=== PATIENT | male | born 1940 | race Caucasian/White ===

== ENCOUNTER → 2017-11-09 | Outpatient (CLI) | payer MEDICARE ==
--- NOTE | 2017-11-09 18:22 | REP ---
CT of the abdomen pelvis without IV and oral contrast for evaluation of abdominal aortic aneurysm: There are no comparison studies. There is an infrarenal abdominal aortic aneurysm measuring 5.6 cm diameter and spanning a craniocaudad length of 8.5 cm. There is no periaortic hematoma. There is circumferential calcified atheroma in the abdominal aorta including the aneurysm. The visualized lung swanson are unremarkable. The unenhanced hepatic parenchyma, gallbladder, pancreas and spleen are unremarkable. The adrenals, kidneys, bowel and mesentery are unremarkable. Pelvis: There is descending colon and sigmoid colon diverticulosis without diverticulitis. The bladder is unremarkable. A small central is incidentally noted. There is no ascites or adenopathy. Impression: The the patient has an abdominal aortic aneurysm measuring 5.6 cm in diameter and spanning a craniocaudad length of 8.5 cm. There is no periaortic hematoma. There is diverticulosis without diverticulitis. Signed by Rashawn Castro MD 11/09/2017 06:13 P
== END ==
LOC: M RAD 16:53
PROVIDERS: ATTEND Surgery Vascular Surgery
DX: I71.4 Abdominal aortic aneurysm, without rupture (principal)

== ENCOUNTER → 2017-11-18 | Outpatient (CLI) | payer MEDICARE ==
[~2017-11-18] MED LIST: ASPI1TAB PO; ATOR1TAB19 PO; BENA20TA8 PO; SERT50TA PO
--- NOTE | 2017-11-18 15:01 | REP ---
CAROTID ULTRASOUND: Real-time ultrasound evaluation and duplex Doppler interrogation of the extracranial carotid vasculature is performed. There is mild plaquing and narrowing in both carotid bulbs extending into the internal and external carotid arteries. Luminal narrowing is less than 50%. There is no evidence of hemodynamically significant stenosis of either internal carotid artery. Normal flow velocities are seen. The vertebral arteries demonstrate normal direction of flow. RIGHT LEFT Peak systolic velocity ICA 59 cm/s 67.1 cm/s End diastolic velocity ICA 18.5 cm/s 21.8 cm/s Peak systolic velocity CCA 67.4 cm/s 101.1 cm/s Peak systolic velocity ECA 88.6 cm/s 19.5 cm/s ICA/CCA ratio 1.5 1.27 IMPRESSION: Bilateral luminal narrowing of the internal carotid arteries less than 50%. No evidence of hemodynamically significant stenosis. There is a soft tissue mass in the left side of the neck incidentally noted with irregular margins, measuring 3.4 x 1.7 x [address] of the soft tissues of the neck with IV contrast to further evaluate. Signed by Rashawn Little MD 11/18/2017 02:52 P
== END ==
LOC: M RAD 14:00
PROVIDERS: ATTEND Surgery Vascular Surgery
DX: I71.4 Abdominal aortic aneurysm, without rupture (principal); I65.23 Occlusion and stenosis of bilateral carotid arteries; F17.210 Nicotine dependence, cigarettes, uncomplicated

== ENCOUNTER 2017-12-02 05:46 | Inpatient (IN) | payer MEDICARE ==
[2017-12-02 06:22] LABS: HEMATOCRIT 38.9 % (42.0-52.0); MEAN CORPUSCULAR HEMOGLOBIN 31.8 pg (27.0-33.0); MEAN CORPUSCULAR HGB CONC 33.4 g/dl (32.0-36.5); MEAN CORPUSCULAR VOLUME 95.1 fl (80.0-96.0); PLATELET COUNT, AUTOMATED 280 10^3/uL (150-450); RED BLOOD COUNT 4.09 10^6/uL (4.30-6.10); RED CELL DISTRIBUTION WIDTH 14.3 % (11.5-14.5); WHITE BLOOD COUNT 9.3 10^3/uL (4.0-10.0)
[2017-12-02] MEDS: LR 1,000 ML IV ×2 (07:00→11:45)
[2017-12-02] MEDS ORDERED: PROPOFOL 200 MG/20 ML VIAL As Ordered (07:15)
[2017-12-02] MEDS ORDERED: MIDAZOLAM INJ 2 MG/2 ML VIAL (J2250) As Ordered (07:15)
[2017-12-02] MEDS ORDERED: fentaNYL 100 MCG/2 ML INJECTION (J3010) As Ordered ×3 (07:15→10:53)
[2017-12-02] MEDS ORDERED: LIDOCAINE 2% INJ 100 MG/5 ML SDV (FOR ANES.) As Ordered (07:15)
[2017-12-02] MEDS ORDERED: NEOSTIGMINE 10 MG/10 ML VIAL (J2710) As Ordered (07:47)
[2017-12-02] MEDS ORDERED: GLYCOPYRROLATE INJ 0.2 MG/ML 2 ML VIAL As Ordered (07:47)
[2017-12-02] MEDS ORDERED: dexameTHASONE 4 MG/ML 1ML VIAL (J1100) As Ordered (07:47)
[2017-12-02] MEDS ORDERED: ROCURONIUM BROMIDE 50 MG/5 ML VIAL As Ordered ×2 (07:47→08:57)
[2017-12-02] MEDS ORDERED: ONDANSETRON 4MG/2ML VIAL (J2405) As Ordered (07:47)
[2017-12-02] MEDS: HEPARIN SOD (PORCINE) 5000 UNITS/ML VIAL As Ordered (08:16)
[2017-12-02] MEDS ORDERED: HEPARIN SOD (PORCINE) 5000 UNITS/ML VIAL As Ordered (08:37)
[2017-12-02] MEDS: ISOVUE-300 61% 50ML VIAL (Q9967) As Ordered (08:59)
[2017-12-02] MEDS ORDERED: ePHEDrine SULFATE 25 MG/5 ML(5MG/ML) SYRINGE As Ordered (09:19)
[2017-12-02] MEDS ORDERED: PHENYLephrine HCL 500 MCG/5 ML (100MCG/ML) SYRINGE (J2370) As Ordered (09:20)
[2017-12-02 09:21] LABS: INR 1.03; PROTHROMBIN TIME 13.6 SECONDS (12.4-14.5)
[2017-12-02 09:22] LABS: PARTIAL THROMBOPLASTIN TIME 26.4 SECONDS (26.8-37.9)
[2017-12-02 09:30] LABS: ANION GAP 5 MEQ/L (8-16); BLOOD UREA NITROGEN 20 MG/DL (7-18); CALCIUM LEVEL 8.5 MG/DL (8.8-10.2); CARBON DIOXIDE LEVEL 27 MEQ/L (21-32); CHLORIDE LEVEL 108 MEQ/L (98-107); CREATININE FOR GFR 0.89 MG/DL (0.70-1.30); GLOMERULAR FILTRATION RATE > 60.0 (>42); GLUCOSE, FASTING 111 MG/DL (83-110); POTASSIUM SERUM 4.3 MEQ/L (3.5-5.1); SODIUM LEVEL 140 MEQ/L (136-145)
[2017-12-02] MEDS ORDERED: ONDANSETRON 4MG/2ML VIAL (J2405) IV ×2 (11:45→12:00)
[2017-12-02] MEDS ORDERED: METOCLOPRAMIDE INJ 10MG/2ML VIAL (J2765) IV (11:45)
[2017-12-02] MEDS ORDERED: MOM 30ML SUSPENSION UDC PO (12:00)
[2017-12-02] MEDS ORDERED: BISACODYL 10 MG SUPP PR (12:00)
[2017-12-02] MEDS: PERCOCET 5MG/325MG TAB PO ×2 (12:12→12:38)
[2017-12-02] MEDS: fentaNYL 100 MCG/2 ML INJECTION (J3010) IV (12:13)
[2017-12-02] MEDS: ASPIRIN 81 MG ENTERIC TAB PO (13:51)
[2017-12-02] MEDS: ATORVASTATIN 10 MG TAB PO (13:51)
[2017-12-02] MEDS: SERTRALINE HCL 50 MG TAB PO (13:51)
[2017-12-02] MEDS: DOCUSATE SODIUM 100 MG CAP PO (20:21)
[2017-12-02] MEDS: SENOKOT S TAB PO (20:21)
[2017-12-02] MEDS: HEPARIN SOD (PORCINE) 5000 UNITS/ML VIAL SC (20:21)
[2017-12-02] MEDS: SLF 3 ML SYR IV ×2 (20:22)
[2017-12-02] MEDS: ACETAMINOPHEN TAB 650MG DOSE (2X325MG) PO (20:31)
[2017-12-03] MEDS: SLF 3 ML SYR IV (06:45)
[2017-12-03] MEDS: DOCUSATE SODIUM 100 MG CAP PO (07:31)
[2017-12-03] MEDS: SENOKOT S TAB PO (07:31)
[2017-12-03] MEDS: BENAZEPRIL 20 MG TAB PO (07:31)
[2017-12-03] MEDS: ASPIRIN 81 MG ENTERIC TAB PO (07:31)
[2017-12-03] MEDS: NORCO, ANEXSIA 5/325MG TABLET (HYDROcodone/ACETAMINOPHEN) PO (07:32)
[2017-12-03] MEDS: ATORVASTATIN 10 MG TAB PO (07:32)
[2017-12-03] MEDS: SERTRALINE HCL 50 MG TAB PO (07:32)
[2017-12-03] MEDS: HEPARIN SOD (PORCINE) 5000 UNITS/ML VIAL SC (07:32)
== END 2017-12-03 14:00 | disposition home or self-care (01) | DRG 269 ==
LOC: M OR 05:46 → M PCU 12:08
PROC: 04V03DZ Restriction of Abdominal Aorta with Intraluminal Device, Percutaneous Approach (ICD-10-PCS; principal; 2017-12-02 07:30)
PROC: 04CK0ZZ Extirpation of Matter from Right Femoral Artery, Open Approach (ICD-10-PCS; 2017-12-02 07:30)
DX: I71.4 Abdominal aortic aneurysm, without rupture (principal); I10 Essential (primary) hypertension; J44.9 Chronic obstructive pulmonary disease, unspecified; F32.9 Major depressive disorder, single episode, unspecified; N40.0 Benign prostatic hyperplasia without lower urinary tract symptoms; F17.210 Nicotine dependence, cigarettes, uncomplicated; Z79.82 Long term (current) use of aspirin; Z79.899 Other long term (current) drug therapy

== ENCOUNTER → 2018-01-05 | Outpatient (CLI) | payer MEDICARE | LOC: M RAD 10:02 | DX: I71.4 Abdominal aortic aneurysm, without rupture (principal) | CPT/HCPCS: 76775 ==

== ENCOUNTER 2018-01-26 08:46 | Day surgery (SDC) | payer MEDICARE ==
[~2018-01-26 08:46] MED LIST changes: +ACETAMINOPHEN 325 MG TAB PO; -ASPI1TAB PO; -ATOR1TAB19 PO; -BENA20TA8 PO; +MIDAZOLAM INJ 2 MG/2 ML VIAL (J2250) As Ordered; +PHENYLEPHRINE HCL 10 % OPHTH. SOL 5ML OS; +PROPARACAINE 0.5% OPHTH SOL 15ML OS; -SERT50TA PO; +fentaNYL 100 MCG/2 ML INJECTION (J3010) As Ordered
[2018-01-26] MEDS ORDERED: KETOROLAC 0.5% OPHTH SOLN OS (09:00)
[2018-01-26] MEDS ORDERED: TRIMETHOBENZAMIDE 300 MG CAP PO (09:00)
[2018-01-26] MEDS ORDERED: CYCLOPENTOLATE 2% OPHTH SOLN 2ML BTL As Ordered (09:50)
[2018-01-26] MEDS ORDERED: OFLOXACIN 0.3 % (OCUFLOX) OPTH SOL 5ML As Ordered (09:50)
[2018-01-26] MEDS ORDERED: PHENYLEPHRINE 2.5% OPHTH SOL 2ML As Ordered (09:50)
[2018-01-26] MEDS ORDERED: TROPICAMIDE 1% OPHTH SOLN 2ML As Ordered (09:50)
[2018-01-26] MEDS: TROPICAMIDE 1% OPHTH SOLN 2ML OS (10:00)
[2018-01-26] MEDS: LIDOCAINE 3.5 % 1ML OPHTH TOPICAL GEL OU (10:00)
[2018-01-26] MEDS: OFLOXACIN 0.3 % (OCUFLOX) OPTH SOL 5ML OS (10:00)
[2018-01-26] MEDS: CYCLOPENTOLATE 2% OPHTH SOLN 2ML BTL OS (10:00)
[2018-01-26] MEDS: PHENYLEPHRINE 2.5% OPHTH SOL 2ML OS (10:00)
[2018-01-26] MEDS: POVIDONE-IODINE 5% OPHTH PREP SOL 30ML As Ordered (11:52)
[2018-01-26] MEDS: HEALON DUET (HEALON 10MG/ML 0.55ML & HEALON ENDOCOAT 30MG/ML 0.85ML) As Ordered (11:56)
[2018-01-26] MEDS: BSS with VANC/TOB/EPI for EYE CASES IR (11:56)
[2018-01-26] MEDS: TRIAMCINOLONE PRES FR 40 MG/ML 1ML(TRIESENCE)(OR EYE ONLY)(J3300 PER 1MG) As Ordered (11:57)
[2018-01-26] MEDS: MOXIFLOXACIN IN BSS 0.25MG/0.25ML INTRACAMERAL INJ (OR EYE ONLY)(J2280) As Ordered (11:57)
[2018-01-26] MEDS: LIDOCAINE 1% SDV 5 ML VIAL As Ordered (11:57)
[2018-01-26] MEDS: AcetaZOLAMIDE 500 MG ER CAP PO (12:33)
== END 2018-01-26 12:55 | disposition home or self-care (01) ==
LOC: M SDC 08:46
DX: H26.9 Unspecified cataract (principal); I71.4 Abdominal aortic aneurysm, without rupture; I10 Essential (primary) hypertension; E78.00 Pure hypercholesterolemia, unspecified; M12.9 Arthropathy, unspecified; I83.90 Asymptomatic varicose veins of unspecified lower extremity; Z79.899 Other long term (current) drug therapy; Z79.82 Long term (current) use of aspirin; Z86.73 Personal history of transient ischemic attack (TIA), and cerebral infarction without residual deficits; Z72.0 Tobacco use
CPT/HCPCS: 66984

== ENCOUNTER 2018-02-02 07:11 | Day surgery (SDC) | payer MEDICARE ==
[~2018-02-02 07:11] MED LIST changes: -MIDAZOLAM INJ 2 MG/2 ML VIAL (J2250) As Ordered; -PHENYLEPHRINE HCL 10 % OPHTH. SOL 5ML OS; +PHENYLEPHRINE HCL 10 % OPHTH. SOL 5ML XX; +PROPARACAINE 0.5% OPHTH SOL 15ML OD; -PROPARACAINE 0.5% OPHTH SOL 15ML OS; -fentaNYL 100 MCG/2 ML INJECTION (J3010) As Ordered
[2018-02-02] MEDS ORDERED: CYCLOPENTOLATE 2% OPHTH SOLN 2ML BTL As Ordered (07:14)
[2018-02-02] MEDS ORDERED: PHENYLEPHRINE 2.5% OPHTH SOL 2ML As Ordered (07:14)
[2018-02-02] MEDS ORDERED: OFLOXACIN 0.3 % (OCUFLOX) OPTH SOL 5ML As Ordered (07:14)
[2018-02-02] MEDS ORDERED: TROPICAMIDE 1% OPHTH SOLN 2ML As Ordered (07:14)
[2018-02-02] MEDS: CYCLOPENTOLATE 2% OPHTH SOLN 2ML BTL XX (07:42)
[2018-02-02] MEDS: PHENYLEPHRINE 2.5% OPHTH SOL 2ML XX (07:42)
[2018-02-02] MEDS: OFLOXACIN 0.3 % (OCUFLOX) OPTH SOL 5ML XX (07:42)
[2018-02-02] MEDS: LIDOCAINE 3.5 % 1ML OPHTH TOPICAL GEL OU (07:42)
[2018-02-02] MEDS: TROPICAMIDE 1% OPHTH SOLN 2ML XX (07:42)
[2018-02-02] MEDS: MOXIFLOXACIN IN BSS 0.25MG/0.25ML INTRACAMERAL INJ (OR EYE ONLY)(J2280) As Ordered (08:58)
[2018-02-02] MEDS: POVIDONE-IODINE 5% OPHTH PREP SOL 30ML As Ordered (08:58)
[2018-02-02] MEDS: HEALON DUET (HEALON 10MG/ML 0.55ML & HEALON ENDOCOAT 30MG/ML 0.85ML) As Ordered (08:58)
[2018-02-02] MEDS: TRIAMCINOLONE PRES FR 40 MG/ML 1ML(TRIESENCE)(OR EYE ONLY)(J3300 PER 1MG) As Ordered (08:58)
[2018-02-02] MEDS: BSS with VANC/TOB/EPI for EYE CASES IR (08:58)
[2018-02-02] MEDS: LIDOCAINE 1% SDV 5 ML VIAL As Ordered (08:58)
[2018-02-02] MEDS: AcetaZOLAMIDE 500 MG ER CAP PO (09:21)
[2018-02-02] MEDS ORDERED: KETOROLAC 0.5% OPHTH SOLN OD (09:30)
[2018-02-02] MEDS ORDERED: TRIMETHOBENZAMIDE 300 MG CAP PO (09:30)
[2018-02-02] MEDS ORDERED: fentaNYL 100 MCG/2 ML INJECTION (J3010) As Ordered (10:24)
[2018-02-02] MEDS ORDERED: MIDAZOLAM INJ 2 MG/2 ML VIAL (J2250) As Ordered (10:24)
== END 2018-02-02 09:40 | disposition home or self-care (01) ==
LOC: M SDC 07:11
DX: H26.9 Unspecified cataract (principal); I71.4 Abdominal aortic aneurysm, without rupture; I10 Essential (primary) hypertension; E78.00 Pure hypercholesterolemia, unspecified; M12.9 Arthropathy, unspecified; M54.9 Dorsalgia, unspecified; I83.90 Asymptomatic varicose veins of unspecified lower extremity; Z79.899 Other long term (current) drug therapy; Z79.82 Long term (current) use of aspirin; Z86.73 Personal history of transient ischemic attack (TIA), and cerebral infarction without residual deficits; Z72.0 Tobacco use
CPT/HCPCS: 66984

== ENCOUNTER → 2018-05-24 | Outpatient (REF) | payer MEDICARE | LOC: M LAB REF 18:43 | DX: R22.1 Localized swelling, mass and lump, neck (principal); I63.9 Cerebral infarction, unspecified | CPT/HCPCS: 88313 ==

== ENCOUNTER → 2018-06-21 | Outpatient (CLI) | payer MEDICARE | LOC: M ONCR 13:01 | DX: C76.0 Malignant neoplasm of head, face and neck (principal); I10 Essential (primary) hypertension; C77.0 Secondary and unspecified malignant neoplasm of lymph nodes of head, face and neck; Z86.73 Personal history of transient ischemic attack (TIA), and cerebral infarction without residual deficits; F17.210 Nicotine dependence, cigarettes, uncomplicated; R91.1 Solitary pulmonary nodule; K57.30 Diverticulosis of large intestine without perforation or abscess without bleeding | CPT/HCPCS: 78815; G0463 ==

== ENCOUNTER → 2018-06-21 | Outpatient (CLI) | payer MEDICARE | LOC: M PLARAD 07:27 | DX: C77.0 Secondary and unspecified malignant neoplasm of lymph nodes of head, face and neck (principal); R91.1 Solitary pulmonary nodule; K57.30 Diverticulosis of large intestine without perforation or abscess without bleeding | CPT/HCPCS: 78815 ==

== ENCOUNTER → 2018-07-01 | Outpatient (CLI) | payer MEDICARE | LOC: M ONCR 12:50 | DX: C09.9 Malignant neoplasm of tonsil, unspecified (principal); C77.0 Secondary and unspecified malignant neoplasm of lymph nodes of head, face and neck | CPT/HCPCS: G0463 ==

== ENCOUNTER 2018-07-06 10:05 | Day surgery (SDC) | payer MEDICARE ==
[2018-07-06] MEDS: LR 1,000 ML IV ×2 (11:31)
[2018-07-06] MEDS: LIDOCAINE W/EPINEPHRINE 1% 20ML VIAL As Ordered ×2 (11:44)
[2018-07-06] MEDS: dexameTHASONE 4 MG/ML 1ML VIAL (J1100) IV ×2 (12:30)
[2018-07-06] MEDS ORDERED: LIDOCAINE 2% INJ 100 MG/5 ML SDV (FOR ANES.) As Ordered ×2 (12:36)
[2018-07-06] MEDS ORDERED: PROPOFOL 200 MG/20 ML VIAL As Ordered ×2 (12:36)
[2018-07-06] MEDS ORDERED: fentaNYL 100 MCG/2 ML INJECTION (J3010) As Ordered ×4 (12:36→13:27)
[2018-07-06] MEDS ORDERED: MIDAZOLAM INJ 2 MG/2 ML VIAL (J2250) As Ordered ×2 (12:36)
[2018-07-06] MEDS ORDERED: ROCURONIUM BROMIDE 50 MG/5 ML VIAL As Ordered ×2 (12:36)
[2018-07-06] MEDS ORDERED: ONDANSETRON 4MG/2ML VIAL (J2405) As Ordered ×2 (13:00)
[2018-07-06] MEDS ORDERED: LABETALOL HCL 100 MG/20 ML VIAL As Ordered ×2 (13:04)
[2018-07-06] MEDS ORDERED: DESFLURANE 240 ML INHALANT As Ordered ×2 (13:12)
[2018-07-06] MEDS: OXYMETAZOLINE NASAL SPRAY (AFRIN) As Ordered ×2 (13:13)
[2018-07-06] MEDS: METHYLENE BLUE 0.5% (5MG/ML) 10 ML AMP (PROVAYBLUE)(Q9968 PER 1MG) As Ordered ×2 (13:14)
[2018-07-06] MEDS ORDERED: ePHEDrine SULFATE 25 MG/5 ML(5MG/ML) SYRINGE As Ordered ×2 (13:33)
[2018-07-06] MEDS ORDERED: SUGAMMADEX SODIUM 500 MG/5 ML VIAL (BRIDION) As Ordered ×2 (13:49)
[2018-07-06] MEDS ORDERED: LR 1,000 ML IV ×4 (14:30)
[2018-07-06] MEDS ORDERED: fentaNYL 100 MCG/2 ML INJECTION (J3010) IV ×2 (14:30)
[2018-07-06] MEDS ORDERED: ONDANSETRON 4MG/2ML VIAL (J2405) IV ×2 (14:30)
[2018-07-06] MEDS ORDERED: METOCLOPRAMIDE INJ 10MG/2ML VIAL (J2765) IV ×2 (14:30)
[2018-07-06] MEDS ORDERED: MEPERIDINE INJ 25 MG/ML VIAL (J2175) IV ×2 (14:30)
[2018-07-06] MEDS ORDERED: PERCOCET 5MG/325MG TAB PO ×2 (14:30)
== END 2018-07-06 15:40 | disposition home or self-care (01) ==
LOC: M SDC 10:05
DX: R59.0 Localized enlarged lymph nodes (principal); R84.6 Abnormal cytological findings in specimens from respiratory organs and thorax (principal); R93.0 Abnormal findings on diagnostic imaging of skull and head, not elsewhere classified; I10 Essential (primary) hypertension; E78.00 Pure hypercholesterolemia, unspecified; M16.0 Bilateral primary osteoarthritis of hip; M54.9 Dorsalgia, unspecified; I83.90 Asymptomatic varicose veins of unspecified lower extremity; H40.9 Unspecified glaucoma; H35.30 Unspecified macular degeneration; F41.9 Anxiety disorder, unspecified; F32.9 Major depressive disorder, single episode, unspecified; Z79.899 Other long term (current) drug therapy; Z79.82 Long term (current) use of aspirin; Z86.73 Personal history of transient ischemic attack (TIA), and cerebral infarction without residual deficits; Z96.1 Presence of intraocular lens
CPT/HCPCS: 31535; Q9968

== ENCOUNTER 2018-07-13 06:50 | Day surgery (SDC) | payer MEDICARE ==
[2018-07-13] MEDS ORDERED: LR 1,000 ML IV ×2 (07:00→10:00)
[2018-07-13] MEDS: CETACAINE SPRAY 5GM As Ordered (09:01)
[2018-07-13] MEDS ORDERED: LIDOCAINE 2% INJ 100 MG/5 ML SDV (FOR ANES.) As Ordered (09:01)
[2018-07-13] MEDS ORDERED: DESFLURANE 240 ML INHALANT As Ordered (09:01)
[2018-07-13] MEDS ORDERED: dexameTHASONE 4 MG/ML 1ML VIAL (J1100) As Ordered (09:01)
[2018-07-13] MEDS ORDERED: NEOSTIGMINE 10 MG/10 ML VIAL (J2710) As Ordered (09:01)
[2018-07-13] MEDS ORDERED: GLYCOPYRROLATE INJ 0.2 MG/ML 2 ML VIAL As Ordered (09:01)
[2018-07-13] MEDS ORDERED: MIDAZOLAM INJ 2 MG/2 ML VIAL (J2250) As Ordered (09:01)
[2018-07-13] MEDS ORDERED: METOCLOPRAMIDE INJ 10MG/2ML VIAL (J2765) As Ordered (09:01)
[2018-07-13] MEDS ORDERED: ONDANSETRON 4MG/2ML VIAL (J2405) As Ordered (09:01)
[2018-07-13] MEDS ORDERED: PROPOFOL 200 MG/20 ML VIAL As Ordered (09:01)
[2018-07-13] MEDS ORDERED: fentaNYL 250 MCG/5 ML INJECTION (J3010) As Ordered (09:01)
[2018-07-13] MEDS ORDERED: ROCURONIUM BROMIDE 50 MG/5 ML VIAL As Ordered (09:01)
[2018-07-13] MEDS ORDERED: ePHEDrine SULFATE 25 MG/5 ML(5MG/ML) SYRINGE As Ordered (09:14)
[2018-07-13] MEDS: LIDOCAINE 1% SDV INJ 30 ML VIAL As Ordered (09:46)
[2018-07-13] MEDS: THROMBIN SOLN 5,000 UNITS VIAL As Ordered (09:46)
[2018-07-13] MEDS: EPINEPHrine 1MG/10ML SYRINGE 1.5IN As Ordered (09:46)
[2018-07-13] MEDS: LIDOCAINE VISCOUS 2% SOLN 15ML UDC As Ordered (09:46)
[2018-07-13] MEDS ORDERED: fentaNYL 100 MCG/2 ML INJECTION (J3010) IV (10:00)
[2018-07-13] MEDS ORDERED: METOCLOPRAMIDE INJ 10MG/2ML VIAL (J2765) IV (10:00)
[2018-07-13] MEDS ORDERED: ONDANSETRON 4MG/2ML VIAL (J2405) IV (10:00)
== END 2018-07-13 10:55 | disposition home or self-care (01) ==
LOC: M SDC 06:50
DX: C34.31 Malignant neoplasm of lower lobe, right bronchus or lung (principal); R93.8 Abnormal findings on diagnostic imaging of other specified body structures; Z85.819 Personal history of malignant neoplasm of unspecified site of lip, oral cavity, and pharynx; I10 Essential (primary) hypertension; E78.5 Hyperlipidemia, unspecified; R23.3 Spontaneous ecchymoses; M16.0 Bilateral primary osteoarthritis of hip; M54.2 Cervicalgia; I83.90 Asymptomatic varicose veins of unspecified lower extremity; F32.9 Major depressive disorder, single episode, unspecified; Z79.899 Other long term (current) drug therapy; Z79.82 Long term (current) use of aspirin; Z86.73 Personal history of transient ischemic attack (TIA), and cerebral infarction without residual deficits; Z72.0 Tobacco use; Z96.1 Presence of intraocular lens
CPT/HCPCS: 31623

== ENCOUNTER 2018-07-22 05:50 | Day surgery (SDC) | payer MEDICARE ==
[2018-07-22] MEDS: LR 1,000 ML IV ×3 (07:00→16:54)
[2018-07-22] MEDS ORDERED: ROCURONIUM BROMIDE 50 MG/5 ML VIAL As Ordered ×2 (07:07→09:00)
[2018-07-22] MEDS ORDERED: LIDOCAINE 2% INJ 100 MG/5 ML SDV (FOR ANES.) As Ordered (07:07)
[2018-07-22] MEDS ORDERED: PROPOFOL 200 MG/20 ML VIAL As Ordered (07:07)
[2018-07-22] MEDS ORDERED: fentaNYL 100 MCG/2 ML INJECTION (J3010) As Ordered ×3 (07:08→09:02)
[2018-07-22] MEDS ORDERED: MIDAZOLAM INJ 2 MG/2 ML VIAL (J2250) As Ordered (07:08)
[2018-07-22] MEDS ORDERED: ONDANSETRON 4MG/2ML VIAL (J2405) As Ordered (07:11)
[2018-07-22] MEDS: dexameTHASONE 4 MG/ML 1ML VIAL (J1100) IV ×3 (07:40→23:47)
[2018-07-22] MEDS ORDERED: ePHEDrine SULFATE 25 MG/5 ML(5MG/ML) SYRINGE As Ordered ×2 (07:48→10:50)
[2018-07-22] MEDS: CEFUROXIME INJ 750 MG VIAL (J0697 PER 750MG) As Ordered (08:00)
[2018-07-22] MEDS: OXYMETAZOLINE NASAL SPRAY (AFRIN) As Ordered (08:14)
[2018-07-22] MEDS: METHYLENE BLUE 0.5% (5MG/ML) 10 ML AMP (PROVAYBLUE)(Q9968 PER 1MG) As Ordered (08:14)
[2018-07-22] MEDS ORDERED: LABETALOL HCL 100 MG/20 ML VIAL As Ordered (09:16)
[2018-07-22] MEDS ORDERED: GLYCOPYRROLATE INJ 0.2 MG/ML 2 ML VIAL As Ordered ×2 (11:05)
[2018-07-22] MEDS ORDERED: NEOSTIGMINE 10 MG/10 ML VIAL (J2710) As Ordered (11:05)
[2018-07-22] MEDS: LIDOCAINE W/EPINEPHRINE 1% 20ML VIAL As Ordered (11:22)
[2018-07-22] MEDS ORDERED: MORPHINE 4 MG/ML 1ML VIAL/SYRINGE (J2270) IV (12:15)
[2018-07-22] MEDS ORDERED: fentaNYL 100 MCG/2 ML INJECTION (J3010) IV (12:15)
[2018-07-22] MEDS ORDERED: dexameTHASONE 4 MG/ML 1ML VIAL (J1100) IV (12:15)
[2018-07-22] MEDS ORDERED: ONDANSETRON 4MG/2ML VIAL (J2405) IV ×2 (12:15)
[2018-07-22] MEDS ORDERED: PERCOCET 5MG/325MG TAB PO (12:15)
[2018-07-22] MEDS: PERCOCET 5MG/325MG TAB PO ×3 (15:22→23:49)
[2018-07-22] MEDS ORDERED: PILL CRUSHER/CUTTER 1 EACH XX (15:45)
[2018-07-22] MEDS: NICOTINE 21MG/24HR 1 EA TRANSDERMAL TD (16:21)
[2018-07-22] MEDS: CEFUROXIME SODIUM 750 MG in D5W MINI-BAG PLUS 50 ML IV ×2 (16:54→23:47)
[2018-07-22] MEDS: CHLORHEXIDINE ORAL RINSE 0.12%/15ML 120ML BOTTLE SSP ×2 (16:54→21:00)
[2018-07-22] MEDS: BENAZEPRIL 20 MG TAB PO (16:56)
[2018-07-22] MEDS: OMEPRAZOLE 20 MG CAP PO (16:57)
[2018-07-22] MEDS: ATORVASTATIN 10 MG TAB PO (16:57)
[2018-07-22] MEDS: SERTRALINE 100 MG TAB PO (16:57)
[2018-07-23] MEDS: LR 1,000 ML IV (05:02)
[2018-07-23] MEDS: PERCOCET 5MG/325MG TAB PO (05:10)
[2018-07-23] MEDS: OMEPRAZOLE 20 MG CAP PO (08:01)
[2018-07-23] MEDS: ATORVASTATIN 10 MG TAB PO (08:01)
[2018-07-23] MEDS: NICOTINE 21MG/24HR 1 EA TRANSDERMAL TD (08:01)
[2018-07-23] MEDS: SERTRALINE 100 MG TAB PO (08:01)
[2018-07-23] MEDS: dexameTHASONE 4 MG/ML 1ML VIAL (J1100) IV (08:01)
[2018-07-23] MEDS: CEFUROXIME SODIUM 750 MG in D5W MINI-BAG PLUS 50 ML IV (08:01)
[2018-07-23] MEDS: CHLORHEXIDINE ORAL RINSE 0.12%/15ML 120ML BOTTLE SSP (08:02)
[2018-07-23] MEDS: BENAZEPRIL 20 MG TAB PO (08:02)
[2018-07-23] MEDS ORDERED: OMEPRAZOLE 20 MG CAP PO (09:00)
== END 2018-07-23 11:54 | disposition home or self-care (01) ==
LOC: M SDC 05:50 → M ICU 13:11
DX: C09.1 Malignant neoplasm of tonsillar pillar (anterior) (posterior) (principal); I10 Essential (primary) hypertension; E78.5 Hyperlipidemia, unspecified; F32.9 Major depressive disorder, single episode, unspecified; F17.210 Nicotine dependence, cigarettes, uncomplicated; Z86.73 Personal history of transient ischemic attack (TIA), and cerebral infarction without residual deficits; Z79.82 Long term (current) use of aspirin; Z79.899 Other long term (current) drug therapy
CPT/HCPCS: 42826

== ENCOUNTER 2018-08-15 06:02 | Inpatient (IN) | payer MEDICARE ==
[2018-08-15] MEDS ORDERED: LR 1,000 ML IV (06:15)
[2018-08-15] MEDS ORDERED: dexameTHASONE 4 MG/ML 1ML VIAL (J1100) IV (06:15)
[2018-08-15] MEDS ORDERED: BACITRACIN OINT 30GM As Ordered (07:15)
[2018-08-15] MEDS ORDERED: ROCURONIUM BROMIDE 50 MG/5 ML VIAL As Ordered ×2 (07:19→08:19)
[2018-08-15] MEDS ORDERED: PROPOFOL 200 MG/20 ML VIAL As Ordered (07:19)
[2018-08-15] MEDS ORDERED: LIDOCAINE 2% INJ 100 MG/5 ML SDV (FOR ANES.) As Ordered (07:19)
[2018-08-15] MEDS ORDERED: MIDAZOLAM INJ 2 MG/2 ML VIAL (J2250) As Ordered (07:20)
[2018-08-15] MEDS ORDERED: fentaNYL 250 MCG/5 ML INJECTION (J3010) As Ordered (07:20)
[2018-08-15] MEDS: dexameTHASONE 4 MG/ML 1ML VIAL (J1100) IV (07:45)
[2018-08-15] MEDS ORDERED: ePHEDrine SULFATE 25 MG/5 ML(5MG/ML) SYRINGE As Ordered ×2 (07:53→09:37)
[2018-08-15] MEDS: CEFUROXIME SODIUM 750 MG in D5W MINI-BAG PLUS 50 ML IV ×3 (07:55→23:47)
[2018-08-15] MEDS: LIDOCAINE W/EPINEPHRINE 1% 20ML VIAL As Ordered (08:22)
[2018-08-15] MEDS ORDERED: REMIFENTANIL 1MG 3ML VIAL As Ordered ×2 (08:37)
[2018-08-15] MEDS ORDERED: LABETALOL HCL 100 MG/20 ML VIAL As Ordered (08:41)
[2018-08-15] MEDS ORDERED: HYDROmorphone HCL 2 MG/ML 1ML VIAL (J1170) As Ordered (09:25)
[2018-08-15] MEDS ORDERED: PHENYLephrine HCL 500 MCG/5 ML (100MCG/ML) SYRINGE (J2370) As Ordered (09:44)
[2018-08-15] MEDS ORDERED: PHENYLEPHRINE INJ 10MG/ML VIAL (J2370) As Ordered (10:42)
[2018-08-15] MEDS ORDERED: GLYCOPYRROLATE INJ 0.2 MG/ML 2 ML VIAL As Ordered (10:57)
[2018-08-15] MEDS ORDERED: ONDANSETRON 4MG/2ML VIAL (J2405) As Ordered (10:57)
[2018-08-15] MEDS ORDERED: NEOSTIGMINE 10 MG/10 ML VIAL (J2710) As Ordered (10:57)
[2018-08-15] MEDS ORDERED: SUGAMMADEX SODIUM 500 MG/5 ML VIAL (BRIDION) As Ordered (11:17)
[2018-08-15] MEDS: LR 1,000 ML IV ×2 (12:04→12:45)
[2018-08-15] MEDS ORDERED: fentaNYL 100 MCG/2 ML INJECTION (J3010) IV (12:45)
[2018-08-15] MEDS ORDERED: HYDROMORPHONE HCL 0.5 MG/ 0.5 ML SYRINGE (J1170 PER 1) IV (12:45)
[2018-08-15] MEDS ORDERED: ONDANSETRON 4MG/2ML VIAL (J2405) IV ×2 (12:45)
[2018-08-15] MEDS ORDERED: PERCOCET 5MG/325MG TAB PO (12:45)
[2018-08-15] MEDS: ATORVASTATIN 10 MG TAB PO (14:14)
[2018-08-15] MEDS: SERTRALINE 100 MG TAB PO (14:15)
[2018-08-15] MEDS: NICOTINE 21MG/24HR 1 EA TRANSDERMAL TD (14:15)
[2018-08-15] MEDS: BENAZEPRIL 20 MG TAB PO (15:25)
[2018-08-15] MEDS: PERCOCET 5MG/325MG TAB PO (20:22)
[2018-08-15] MEDS: MORPHINE 4 MG/ML 1ML VIAL/SYRINGE (J2270) IV (23:47)
[2018-08-16] MEDS: PERCOCET 5MG/325MG TAB PO (05:11)
[2018-08-16] MEDS: ATORVASTATIN 10 MG TAB PO (09:19)
[2018-08-16] MEDS: NICOTINE 21MG/24HR 1 EA TRANSDERMAL TD (09:19)
[2018-08-16] MEDS: SERTRALINE 100 MG TAB PO (09:19)
[2018-08-16] MEDS: CEFUROXIME SODIUM 750 MG in D5W MINI-BAG PLUS 50 ML IV (09:20)
[2018-08-16] MEDS: BENAZEPRIL 20 MG TAB PO (10:11)
[2018-08-16] MEDS: BACITRACIN OINT 30GM TOP (11:19)
== END 2018-08-16 14:08 | disposition home or self-care (01) | DRG 825 ==
LOC: M OROP 06:02 → M OR 07:25 → M PCU 13:40
PROC: 07B20ZZ Excision of Left Neck Lymphatic, Open Approach (ICD-10-PCS; principal; 2018-08-15 07:30)
PROC: 0KB30ZZ Excision of Left Neck Muscle, Open Approach (ICD-10-PCS; 2018-08-15 07:30)
DX: C77.0 Secondary and unspecified malignant neoplasm of lymph nodes of head, face and neck (principal); C10.9 Malignant neoplasm of oropharynx, unspecified; F32.9 Major depressive disorder, single episode, unspecified; N40.0 Benign prostatic hyperplasia without lower urinary tract symptoms; I10 Essential (primary) hypertension; J44.9 Chronic obstructive pulmonary disease, unspecified; F17.210 Nicotine dependence, cigarettes, uncomplicated; Z79.899 Other long term (current) drug therapy

== ENCOUNTER → 2018-09-01 | Outpatient (CLI) | payer MEDICARE | LOC: M ONCR 08:52 | DX: C09.9 Malignant neoplasm of tonsil, unspecified (principal); C77.0 Secondary and unspecified malignant neoplasm of lymph nodes of head, face and neck | CPT/HCPCS: G0463 ==

== ENCOUNTER 2018-09-06 13:53 | Outpatient (RCR) | payer MEDICARE | END 2018-09-28 | LOC: M ONCR 13:53 | DX: C09.9 Malignant neoplasm of tonsil, unspecified (principal); C77.0 Secondary and unspecified malignant neoplasm of lymph nodes of head, face and neck | CPT/HCPCS: 77300 ==

== ENCOUNTER → 2018-09-13 | Outpatient (CLI) | payer MEDICARE ==
[~2018-09-13] MED LIST changes: -ACETAMINOPHEN 325 MG TAB PO; +LIDOCAINE 2% MDV 20 ML VIAL As Ordered; -PHENYLEPHRINE HCL 10 % OPHTH. SOL 5ML XX; -PROPARACAINE 0.5% OPHTH SOL 15ML OD; +ceFAZolin 1GM INJ (J0690 PER 500MG) As Ordered
== END | disposition home or self-care (01) ==
LOC: M IRPRO 10:00
DX: C09.9 Malignant neoplasm of tonsil, unspecified (principal); C77.0 Secondary and unspecified malignant neoplasm of lymph nodes of head, face and neck
CPT/HCPCS: 36561

== ENCOUNTER 2018-09-14 06:56 | Day surgery (SDC) | payer MEDICARE ==
[2018-09-14] MEDS ORDERED: NS 1,000 ML IV ×2 (10:45)
[2018-09-14] MEDS: LR 1,000 ML IV ×2 (11:43)
[2018-09-14] MEDS: NORCO, ANEXSIA 5/325MG TABLET (HYDROcodone/ACETAMINOPHEN) PO ×2 (13:05)
[2018-09-14] MEDS ORDERED: SODIUM CHLORIDE 0.9% INJ 10 ML SYR IV ×2 (17:00)
[2018-09-15] MEDS ORDERED: SODIUM CHLORIDE 0.9% INJ 10 ML SYR IV ×2 (09:00)
== END 2018-09-14 13:55 | disposition home or self-care (01) ==
LOC: M OPP 06:56 → M SDC 13:55
DX: C09.9 Malignant neoplasm of tonsil, unspecified (principal); C77.0 Secondary and unspecified malignant neoplasm of lymph nodes of head, face and neck; I10 Essential (primary) hypertension; E78.5 Hyperlipidemia, unspecified; F41.9 Anxiety disorder, unspecified; F32.9 Major depressive disorder, single episode, unspecified; Z79.82 Long term (current) use of aspirin; Z79.899 Other long term (current) drug therapy; F17.210 Nicotine dependence, cigarettes, uncomplicated; Z86.73 Personal history of transient ischemic attack (TIA), and cerebral infarction without residual deficits
CPT/HCPCS: 43246

== ENCOUNTER 2018-09-29 08:20 | Outpatient (RCR) | payer MEDICARE ==
[2018-10-13] MEDS ORDERED: NS 1,000 ML IV (18:24)
[2018-10-13] MEDS ORDERED: ONDANSETRON 4 MG TAB (S0181) PO (18:30)
[2018-10-13] MEDS ORDERED: PANTOPRAZOLE 40MG INJ (PROTONIX) (C9113) IV (18:30)
[2018-10-13] MEDS ORDERED: SENOKOT S TAB PO (21:00)
== END 2018-10-28 ==
LOC: M ONCR 09-30 14:12
DX: C09.9 Malignant neoplasm of tonsil, unspecified (principal); C77.0 Secondary and unspecified malignant neoplasm of lymph nodes of head, face and neck
CPT/HCPCS: 77336

== ENCOUNTER 2018-10-13 15:52 | Inpatient (IN) | payer MEDICARE ==
[2018-10-13 16:29] LABS: BEDSIDE GLUCOSE 146 MG/DL (83-110)
[2018-10-13 16:36] LABS: BASO % 0.4 % (0.0-1.0); EOS # 0.1 10^3/uL (0.0-0.50); EOS % 1.2 % (0.0-3.0); HEMATOCRIT 24.9 % (42.0-52.0); HEMOGLOBIN 7.8 g/dl (13.5-17.5); IMMATURE GRANULOCYTE % 0.9 % (0-3.0); LYMPH # 2.1 10^3/uL (1.5-4.5); LYMPH % 25.5 % (24.0-44.0); MEAN CORPUSCULAR HEMOGLOBIN 30.2 pg (27.0-33.0); MEAN CORPUSCULAR HGB CONC 31.3 g/dl (32.0-36.5); MEAN CORPUSCULAR VOLUME 96.5 fl (80.0-96.0); MONO # 0.5 10^3/uL (0.0-0.8); MONO % 6.3 % (0.0-5.0); NEUTROPHILS # 5.3 10^3/uL (1.8-7.7); NEUTROPHILS % 65.7 % (36.0-66.0); PLATELET COUNT, AUTOMATED 104 10^3/uL (150-450); RED BLOOD COUNT 2.58 10^6/uL (4.30-6.10); RED CELL DISTRIBUTION WIDTH 15.3 % (11.5-14.5); WHITE BLOOD COUNT 8.1 10^3/uL (4.0-10.0)
[2018-10-13 16:58] LABS: LACTIC ACID SEPSIS PROTOCOL 7.8 MMOL/L (0.4-2.0)
[2018-10-13 17:14] LABS: ANION GAP 22 MEQ/L (8-16); BLOOD UREA NITROGEN 34 MG/DL (7-18); CALCIUM LEVEL 8.2 MG/DL (8.8-10.2); CARBON DIOXIDE LEVEL 15 MEQ/L (21-32); CHLORIDE LEVEL 108 MEQ/L (98-107); CPK CREATINE PHOSPHOKINASE 56 U/L (39-308); CREATININE FOR GFR 1.54 MG/DL (0.70-1.30); GLOMERULAR FILTRATION RATE 46.7 (>42); GLUCOSE, FASTING 180 MG/DL (70-100); MAGNESIUM LEVEL 2.1 MG/DL (1.8-2.4); MB/CK RELATIVE INDEX 2.32 (< OR =4); POTASSIUM SERUM 4.2 MEQ/L (3.5-5.1); SODIUM LEVEL 145 MEQ/L (136-145); TROPONIN I < 0.02 NG/ML (< 0.10)
[2018-10-13] MEDS: NS 1,000 ML IV ×2 (17:21→18:50)
[2018-10-13] MEDS: ONDANSETRON 4MG/2ML VIAL (J2405) IV (17:21)
[2018-10-13] MEDS: SODIUM CHLORIDE 0.9% 1000ML IV ×2 (19:00→19:15)
[2018-10-13] MEDS: METOCLOPRAMIDE INJ 10MG/2ML VIAL (J2765) IV (19:00)
[2018-10-13] MEDS ORDERED: HYDROMORPHONE HCL 0.5 MG/ 0.5 ML SYRINGE (J1170 PER 1) IV ×5 (19:15)
[2018-10-13] MEDS: PANTOPRAZOLE SODIUM 40 MG in D5W 50 ML IV ×2 (19:15→23:25)
[2018-10-13] MEDS ORDERED: HYDROmorphone HCL 2 MG/ML 1ML VIAL (J1170) IV (19:15)
[2018-10-13 21:01] LABS: RETIC HEMOGLOBIN EQUIVALENT 38.1 pg (24-36); RETICULOCYTE # 18.8 10^9/L (17-77); RETICULOCYTE % 0.7 % (0.5-1.5)
[2018-10-13 21:10] LABS: INR 2.17; PARTIAL THROMBOPLASTIN TIME 30.6 SECONDS (25.4-37.6); PROTHROMBIN TIME 24.6 SECONDS (12.1-14.4)
[2018-10-13 21:12] LABS: HEMATOCRIT 25.2 % (42.0-52.0)
[2018-10-13 21:35] LABS: FERRITIN 101 NG/ML (26-388); IRON (FE) 49 UG/DL (65-175); PERCENT SATURATION 32.9 % (19.7-50.0); TOTAL IRON BINDING CAPACITY 149 UG/DL (250-450)
[2018-10-13 21:40] LABS: VITAMIN B12 LEVEL 435 PG/ML (247-911)
[2018-10-13] MEDS: LIDOCAINE 2% 5ML JELLY UROJET TOP (22:30)
[2018-10-13 22:41] LABS: HEMATOCRIT 23.2 % (42.0-52.0); HEMOGLOBIN 7.5 g/dl (13.5-17.5)
[2018-10-13 22:58] LABS: KETONE, URINE AUTO RFX 1+ mg/dL (NEGATIVE); LEUKOCYTE ESTERASE UR AUTO RFX NEGATIVE (NEGATIVE); MUCUS, URINE RFX SMALL (NEGATIVE); NITRITE, URINE AUTO RFX NEGATIVE (NEGATIVE); RBC, URINE AUTO RFX 33 /HPF (0-3); SPECIFIC GRAVITY UR AUTO RFX 1.013 (1.002-1.035); SQUAM EPITHELIAL CELL UR AURFX 0 /HPF (0-6); WBC, URINE AUTO RFX 8 /HPF (0-3)
[2018-10-13 23:03] LABS: IMMEDIATE SPIN CROSSMATCH 1 2
[2018-10-14 00:37] LABS: IMMEDIATE SPIN CROSSMATCH 1 1
[2018-10-14] MEDS: ONDANSETRON 4MG/2ML VIAL (J2405) IV (01:17)
[2018-10-14] MEDS: fentaNYL 100 MCG/2 ML INJECTION (J3010) IV (01:48)
[2018-10-14 03:48] LABS: HEMATOCRIT 30.1 % (42.0-52.0); MEAN CORPUSCULAR HEMOGLOBIN 29.9 pg (27.0-33.0); MEAN CORPUSCULAR HGB CONC 33.2 g/dl (32.0-36.5); MEAN CORPUSCULAR VOLUME 90.1 fl (80.0-96.0); RED BLOOD COUNT 3.34 10^6/uL (4.30-6.10); RED CELL DISTRIBUTION WIDTH 15.2 % (11.5-14.5); WHITE BLOOD COUNT 11.6 10^3/uL (4.0-10.0)
[2018-10-14 03:59] LABS: INR 2.24; PROTHROMBIN TIME 25.2 SECONDS (12.1-14.4)
[2018-10-14 04:08] LABS: ALBUMIN 2.4 GM/DL (3.2-5.2); ALBUMIN/GLOBULIN RATIO 0.96 (1.00-1.93); ALKALINE PHOSPHATASE 52 U/L (45-117); ALT/SGPT 18 U/L (12-78); ANION GAP 8 MEQ/L (8-16); AST/SGOT 15 U/L (7-37); BILIRUBIN,TOTAL 0.8 MG/DL (0.2-1.0); BLOOD UREA NITROGEN 42 MG/DL (7-18); CALCIUM LEVEL 7.6 MG/DL (8.8-10.2); CARBON DIOXIDE LEVEL 22 MEQ/L (21-32); CHLORIDE LEVEL 115 MEQ/L (98-107); CREATININE FOR GFR 1.02 MG/DL (0.70-1.30); GLOMERULAR FILTRATION RATE > 60.0 (>42); GLUCOSE, FASTING 157 MG/DL (70-100); MAGNESIUM LEVEL 1.7 MG/DL (1.8-2.4); POTASSIUM SERUM 4.8 MEQ/L (3.5-5.1); SODIUM LEVEL 145 MEQ/L (136-145); TOTAL PROTEIN 4.9 GM/DL (6.4-8.2)
[2018-10-14 04:27] LABS: PLATELET COUNT, AUTOMATED 68 10^3/uL (150-450)
[2018-10-14 04:28] LABS: IMMATURE PLATELET FRACTION % 5.7 % (0.0-10.9)
[2018-10-14] MEDS: PANTOPRAZOLE SODIUM 40 MG in D5W 50 ML IV (04:42)
[2018-10-14] MEDS ORDERED: OCUVITE 1 TAB PO (09:00)
[2018-10-14] MEDS ORDERED: SERTRALINE 100 MG TAB PO (09:00)
[2018-10-14] MEDS ORDERED: ATORVASTATIN 10 MG TAB PO (09:00)
[2018-10-14] MEDS ORDERED: PANTOPRAZOLE 40MG INJ (PROTONIX) (C9113) IV (09:00)
[2018-10-14 12:57] LABS: PRETREATED FOLATE FOR RBCFOL 4.6 NG/ML; RBC FOLATE 383 NG/ML (280-791)
== END 2018-10-14 05:22 | disposition short-term general hospital (02) | DRG 378 ==
LOC: M ED 15:52 → M ED INP 19:17 → M ICU 21:25
PROVIDERS: Hospitalist
DX: K92.2 Gastrointestinal hemorrhage, unspecified (principal); C78.02 Secondary malignant neoplasm of left lung; D62 Acute posthemorrhagic anemia; C78.5 Secondary malignant neoplasm of large intestine and rectum; R55 Syncope and collapse; E86.0 Dehydration; I95.9 Hypotension, unspecified; C09.9 Malignant neoplasm of tonsil, unspecified; I10 Essential (primary) hypertension; E78.5 Hyperlipidemia, unspecified; H35.30 Unspecified macular degeneration; Z86.73 Personal history of transient ischemic attack (TIA), and cerebral infarction without residual deficits; F41.0 Panic disorder [episodic paroxysmal anxiety]; Z98.41 Cataract extraction status, right eye; Z93.1 Gastrostomy status; Z98.42 Cataract extraction status, left eye; Z79.82 Long term (current) use of aspirin; Z87.891 Personal history of nicotine dependence; Z79.899 Other long term (current) drug therapy